=== PATIENT | female | born 1960 | race Caucasian/White ===

== ENCOUNTER → 2017-03-12 | Outpatient (CLI) | payer OTHER ==
--- NOTE | 2017-03-12 14:54 | CT ---
EXAMINATION TYPE: CT abdomen pelvis w con DATE OF EXAM: 03/12/2017 1:43 PM COMPARISON: NONE INDICATION: Lower abdominal pain DLP: 902 mGycm, Automated exposure control for dose reduction was used. CONTRAST: 100 ml mL of Omnipaque 300. Study performed with Oral Contrast TECHNIQUE: Axial images were obtained from above the diaphragm to the pubic rami in the axial plane a t 5 mm thick sections. Reconstructed images are reviewed on the computer in the coronal plane. FINDINGS: Limited CT sections are obtained the lung bases. The lung bases are clear. CT ABDOMEN: Liver: Normal Spleen: Normal Pancreas: Pancreatic duct that of the pancreas is slightly prominent 0.4 cm. Normal is less than 0.3 cm. Adrenal glands: The adrenal glands are normal. Gallbladder: Normal Kidneys: No masses are evident. No hydronephrosis is present. No cysts are present. Delayed images were obtained through the kidneys, which remain unremarkable. Aorta: Vascular calcification is within the aorta. A graft is evident adjacent to the distal abdomin al aorta. Inferior vena cava: Normal. CT PELVIS: Diverticular changes are within the sigmoid colon. Oral contrast extends to the descending colon aubrey on. There are loops of bowel which are incompletely distended or lack oral contrast limiting their ev aluation. Appendix: Normal as visualized. Urinary bladder: Normal. Genitourinary structures: Uterus is normal. Adnexal regions are clear. Osseous structures: No suspicious lytic or sclerotic lesions. Degenerative disc changes are present L 5-S1. IMPRESSIONS: 1. Prominence of the pancreatic duct at the head of the pancreas. 2. Post abdominal aorta graft. 3. Mild diverticulosis sigmoid colon.
== END | disposition home or self-care (01) ==
LOC: RADCTMAIN 11:43
PROVIDERS: ATTEND Family Medicine
DX: K57.30 Diverticulosis of large intestine without perforation or abscess without bleeding (principal); Z95.828 Presence of other vascular implants and grafts
CPT/HCPCS: 74177; Q9967

== ENCOUNTER → 2017-03-27 | Outpatient (CLI) | payer OTHER ==
[2017-03-27 09:11] LABS: CH 31.4; CHCM 33.4; HCT 46.1 % (34.0-46.0); HDW 2.41; HGB 15.3 gm/dL (11.4-16.0); MCH 31.4 pg (25.0-35.0); MCHC 33.1 g/dL (31.0-37.0); MCV 94.7 fL (80.0-100.0); Mean Platelet Volume 6.4; RBC 4.87 m/uL (3.80-5.40); RDW 13.3 % (11.5-15.5)
[2017-03-27 09:13] LABS: ALT 20 U/L (9-52); AST 14 U/L (14-36); Alkaline Phosphatase 61 U/L (38-126); Anion Gap 8 mmol/L; Blood Urea Nitrogen 24 mg/dL (7-17); Calcium 9.3 mg/dL (8.4-10.2); Carbon Dioxide 29 mmol/L (22-30); Chloride 105 mmol/L (98-107); Glucose 107 mg/dL (74-99); Non-African American GFR(MDRD) >60 (>60 ml/min/1.73 sqM); Potassium 4.3 mmol/L (3.5-5.1); Sodium 142 mmol/L (137-145); Total Bilirubin 0.6 mg/dL (0.2-1.3); Total Protein 7.2 g/dL (6.3-8.2)
== END | disposition home or self-care (01) ==
LOC: LABWHC1 08:39
PROVIDERS: ATTEND Family Medicine
DX: K29.01 Acute gastritis with bleeding (principal); J43.8 Other emphysema; K57.31 Diverticulosis of large intestine without perforation or abscess with bleeding
CPT/HCPCS: 36415; 80053; 83735; 84439; 84443; 85027

== ENCOUNTER 2022-03-23 18:20 | Emergency (ER) | payer OTHER ==
[2022-03-23 18:53] VITALS: BP 184/96; PULSE 70; RESP 18; TEMP 97.6
--- NOTE | 2022-03-23 20:01 | US ---
EXAMINATION TYPE: US venous doppler duplex LE RT DATE OF EXAM: 03/23/2022 7:36 PM COMPARISON: NONE CLINICAL HISTORY: pain to leg . Pain in right leg. Patient does not take blood thinners. No hx of DVT . Hx stent placement, limited history from patient-unsure of exact location of stent. SIDE PERFORMED: Right TECHNIQUE: The lower extremity deep venous system is examined utilizing real time linear array sonog meghan with graded compression, doppler sonography and color-flow sonography. VESSELS IMAGED: Common Femoral Vein Deep Femoral Vein Greater Saphenous Vein * Femoral Vein Popliteal Vein Small Saphenous Vein * Proximal Calf Veins (* superficial vessels) FINDINGS: Color defect seen within duplicate distal femoral veins. These veins do not appear to comp ress completely, but the central lumen appears patent. Possible chronic thrombus within. Exam is limi tracy due to edema. IMPRESSION: 1. No acute DVT, right lower extremity. 2. Suspect chronic thrombus within duplicated distal femoral veins.
--- NOTE | 2022-03-23 20:46 | ED ---
Extremity Problem HPI - General Chief complaint: Extremity Problem,Nontraumatic Stated complaint: leg pain Time Seen by Provider: 03/23/22 20:16 Source: patient, RN notes reviewed Mode of arrival: ambulatory Limitations: no limitations - History of Present Illness Initial comments: This is a pleasant 61-year-old female comes ER complaining of intermittent pain to the lateral aspect of her right thigh. This going on for about 3 days. 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 Patient has a history of vascular disease and had an aortobifemoral bypass done in 2016. Patient denying any pain distally into the leg. Pain is exacerbated by certain movements. She is describing as burning in sensation. Only to the lateral aspect of the right thigh. No shortness of breath or chest pain. No headache, no fever or chills, no changes in vision or hearing, no sore throat or difficulty with speech, no neck pain, no chest pain or shortness of breath, no abdominal pain, no nausea or vomiting, no changes in urination or bowel movements, no numbness or tingling, no skin rashes or lesions. - Related Data Home Medications Medication Instructions Recorded Confirmed Albuterol Sulfate [Proair Hfa] 2 puff INHALATION RT-Q4H PRN 10/29/14 09/21/17 Levothyroxine Sodium [Synthroid] 100 mcg PO QAM 10/29/14 09/21/17 Simvastatin 20 tab PO HS 10/29/14 09/21/17 Verapamil HCl [Verapamil ER] 120 mg PO QAM 10/29/14 09/21/17 ALPRAZolam [Xanax] 0.5 mg PO BID PRN 06/11/15 09/21/17 amLODIPine BESYLATE [Norvasc] 5 mg PO BID 06/11/15 09/21/17 PARoxetine HCL [Paxil] 10 mg PO QAM 12/17/15 09/21/17 Cyanocobalamin [Vitamin B-12 10,000 mcg SQ QMONTH 05/05/16 09/21/17 Injection] Nicotine 21Mg/24Hr Patch [Habitrol] 1 patch TRANSDERM DAILY PRN 05/05/16 09/21/17 Previous Rx's Medication Instructions Recorded HYDROcodone/APAP 10-325MG [[place] 1 tab PO Q6H PRN #30 tab 05/14/16 10-325] Cephalexin [Keflex] 500 mg PO Q12HR #20 cap 09/21/17 methylPREDNISolone [Medrol] 4 mg PO DIRECTED #1 each 03/23/22 Allergies Allergy/AdvReac Type Severity Reaction Status Date / Time No Known Allergies Allergy Verified 03/23/22 18:53 Review of Systems ROS Statement: Those systems with pertinent positive or pertinent negative responses have been documented in the HPI. ROS Other: All systems not noted in ROS Statement are negative. Past Medical History Past Medical History: COPD, Hyperlipidemia, Hypertension, Osteoarthritis (OA), Thyroid Disorder, Vascular Disorder Additional Past Medical History / Comment(s): pain renée legs,irregular heart beat. CHRONIC BACK PAIN. History of Any Multi-Drug Resistant Organisms: None Reported Past Surgical History: Orthopedic Surgery, Tubal Ligation Additional Past Surgical History / Comment(s): LT FOOT SX, EPIDURAL INJECTION. Aortobifemoral Bypass: 05/09/[address] Kingsley Past Anesthesia/Blood Transfusion Reactions: Motion Sickness Past Psychological History: Anxiety Smoking Status: Current every day smoker Past Alcohol Use History: Occasional Past Drug Use History: None Reported - Past Family History Sister(s) Family Medical History: Cancer Father Family Medical History: Cancer Additional Family Medical History / Comment(s): AT AGE 80'S LUNG CANCER Mother Family Medical History: Cancer Additional Family Medical History / Comment(s): MOM LATE 70'S General Exam Limitations: no limitations General appearance: alert, in no apparent distress Head exam: Present: atraumatic, normocephalic, normal inspection Eye exam: Present: normal appearance, PERRL, EOMI. Absent: scleral icterus, conjunctival injection, periorbital swelling ENT exam: Present: normal exam, mucous membranes moist Neck exam: Present: normal inspection, full ROM. Absent: tenderness, meningismus, lymphadenopathy Respiratory exam: Present: normal lung sounds bilaterally. Absent: respiratory distress, wheezes, rales, rhonchi, stridor Cardiovascular Exam: Present: regular rate, normal rhythm, normal heart sounds. Absent: systolic murmur, diastolic murmur, rubs, gallop, clicks GI/Abdominal exam: Present: soft, normal bowel sounds. Absent: distended, tenderness, guarding, rebound, rigid Extremities exam: Present: normal inspection, full ROM, normal capillary refill. Absent: tenderness, pedal edema, joint swelling, calf tenderness Back exam: Present: normal inspection Neurological exam: Present: alert, oriented X3, CN II-XII intact, other (Some subjective anesthesia to the lateral aspect of the right thigh. No erythema. No break in skin integrity. No edema. Pedal pulses are 2+ out of 4.) Psychiatric exam: Present: normal affect, normal mood Skin exam: Present: warm, dry, intact, normal color. Absent: rash Course Vital Signs 03/23/22 18:50 Temperature 97.6 F Pulse Rate 70 Respiratory 18 Rate Blood Pressure 184/96 O2 Sat by Pulse 99 Oximetry - Reevaluation(s) Reevaluation #1: 03/23/22 21:03 Medical record is reviewed Symptoms are unchanged Patient is informed of results and questions answered Patient in no distress - Consultations Consultation #1: Discussed the case in detail with ED attending physician, Dr. Lozada. Discussed In detail with the on-call vascular surgeon. Venous Doppler results discussed. Dr. Arevalo states there is nothing to do acutely. Just make sure the patient is taking a daily aspirin. We'll have the patient follow-up with his office. Medical Decision Making - Medical Decision Making -There are no red flags for concerning back pathology. Specifically: -No history of cancer, this is not a mass effect, MRI not indicated. -No anticoagulation, this is not a bleed. -No fevers, no IVDU, this is not an infectious process. -No trauma, no bony pain, x-rays are not indicated. -With a normal neuro exam, and no urinary or bowel retention or incontinence, there is no clinical sign of motor defect or cauda equina - MRI is not indicated at this point. -No pulsating abdominal mass or risk factors for AAA. -Pain is relieved with rest, which is also less concerning. -We will treat symptomatically and discharge home with follow up instructions. -Stretching/strengthening exercise given to patient and they will be referred to physical therapy -Patient is instructed to use [id number] analgesics as directed on packaging for pain. Case was discussed with vascular surgery director consumer. No treatment acutely for the patient's duplicate from all system. Patient was told to return to the ER for any signs or symptoms worsen. Told to return immediately if any other problems arise. All questions answered. Treatment plan discussed. Patient in agreement Every effort has been made to ensure accuracy of this dictation. However, due to the limitations of electronic medical records and dictation devices, errors in charting still occur. The case was discussed in detail with ED attending physician. Presentation, findings, treatment plan discussed in detail. Supervising physician was Dr. Lozada - Radiology Data Radiology results: report reviewed, image reviewed Disposition Clinical Impression: Meralgia paresthetica of right side, Chronic deep vein thrombosis (DVT) of both femoral veins, DJD (degenerative joint disease), lumbar Disposition: HOME SELF-CARE Condition: Good Instructions (If sedation given, give patient instructions): Lumbar Radiculopathy (ED) Additional Instructions: Take a daily aspirin, 325 mg by mouth. Follow-up with a vascular surgeon for reevaluation. Follow-up with your regular physician as directed. Return to the ER immediately if any symptoms worsen, new symptoms arise, or any other problems develop. Also make an appointment with your regular doctor. Prescriptions: methylPREDNISolone [Medrol] 4 mg PO DIRECTED #1 each Is patient prescribed a controlled substance at d/c from ED?: No Referrals: Matt Rosa Jr, DO [Primary Care Provider] - 1-2 days Jass Arevalo DO [STAFF PHYSICIAN] - 03/27/22 Time of Disposition: 21:05
--- NOTE | 2022-03-23 21:12 | XR ---
PROCEDURE: XR lumbar spine - 3V DATE AND TIME: 03/23/2022 9:03 PM CLINICAL INDICATION: Right-sided lumbar radiculopathy TECHNIQUE: Department protocol COMPARISON: None FINDINGS: There is no fracture or malalignment. No focal bone findings. Moderate degenerative facet and disc changes are seen at all lumbar levels, most advanced at the L5-S 1 level. The soft tissues are unremarkable. IMPRESSION: 1. No acute radiographic process. 2. Lumbar spondylosis.
[2022-03-23] MEDS ORDERED: predniSONE 20 MG TAB PO STA (21:44)
== END 2022-03-23 21:55 | disposition home or self-care (01) ==
LOC: EC 18:20
DX: I82.513 Chronic embolism and thrombosis of femoral vein, bilateral (principal); F17.200 Nicotine dependence, unspecified, uncomplicated; J44.9 Chronic obstructive pulmonary disease, unspecified; I10 Essential (primary) hypertension; E78.5 Hyperlipidemia, unspecified; E07.9 Disorder of thyroid, unspecified; M19.90 Unspecified osteoarthritis, unspecified site; Z79.899 Other long term (current) drug therapy; Z79.890 Hormone replacement therapy
CPT/HCPCS: 72100; 93971; 99284; J7512

== ENCOUNTER → 2024-02-01 | Outpatient (CLI) | payer OTHER ==
[2024-02-01 21:42] LABS: NT-Pro-B-Type Natriuretic Pept 3032 pg/mL (0-125)
[2024-02-01 21:46] LABS: ALT 32 U/L (8-44); AST 30 U/L (13-35); Albumin 4.8 g/dL (3.8-4.9); Albumin/Globulin Ratio 1.85 Ratio (1.60-3.17); Alkaline Phosphatase 65 U/L (41-126); BUN/Creat Ratio 16.32 Ratio (12.00-20.00); Bilirubin, Conjugated <0.20 mg/dL (0.20-0.40); Bilirubin,Unconjugated >0.10 mg/dL (0.20-1.00); Calcium 10.1 mg/dL (8.7-10.3); Carbon Dioxide 30.5 mmol/L (21.6-31.8); Chloride 97 mmol/L (96-109); Chol/HDL Ratio 3.27 Ratio; Globulin 2.6 g/dL (1.6-3.3); Glucose 114 mg/dL (70-110); LDL Cholesterol,Calculated 135.9 mg/dL (0.0-131.0); Potassium 4.3 mmol/L (3.5-5.5); Sodium 140 mmol/L (135-145); Total Bilirubin 0.3 mg/dL (0.3-1.2); Total Protein 7.4 g/dL (6.2-8.2)
== END | disposition home or self-care (01) ==
LOC: LABWHC1 13:03
PROVIDERS: ATTEND Internal Medicine Cardiovascular Disease
DX: I25.10 Atherosclerotic heart disease of native coronary artery without angina pectoris (principal); I50.40 Unspecified combined systolic (congestive) and diastolic (congestive) heart failure; E78.2 Mixed hyperlipidemia
CPT/HCPCS: 36415; 80053; 80061; 82248; 83880